=== PATIENT | male | born 1940 | race Caucasian/White ===

== ENCOUNTER 2020-01-20 22:38 | Inpatient (IN) | payer MEDICARE, OTHER ==
[~2020-01-20] VITALS: Ht 175.3 cm; Wt 78.9 kg
--- NOTE | 2020-01-20 22:45 | NUR ---
PATIENT WAS MSE BY DR BURTON IN ROOM 05A. PATIENT A & O X4.
[2020-01-20 23:11] LABS: BASOPHILS # (AUTO) 0.1 K/uL (0.0-8.0); BASOPHILS % (AUTO) 1.3 % (0.0-2.0); EOSINOPHILS # (AUTO) 0.3 K/uL (0.0-0.7); EOSINOPHILS % (AUTO) 4.1 % (0.0-7.0); HEMATOCRIT 43.5 % (36.7-47.1); LYMPHOCYTES # (AUTO) 1.7 K/uL (20.0-40.0); LYMPHOCYTES % (AUTO) 22.5 % (20.5-51.5); MEAN CORPUSCULAR HEMOGLOBIN 31.6 uug (23.8-33.4); MEAN CORPUSCULAR HGB CONC 34 g/dL (32.5-36.3); MEAN CORPUSCULAR VOLUME 91.9 fL (73.0-96.2); MONOCYTES # (AUTO) 0.9 K/uL (2.0-10.0); MONOCYTES % (AUTO) 12.1 % (0.0-11.0); NEUTROPHILS # (AUTO) 4.4 K/uL (1.8-8.9); PLATELET COUNT (AUTO) 257 K/uL (152-348); RED BLOOD CELL COUNT(AUTO) 4.73 MIL/uL (4.06-5.63); WHITE BLOOD COUNT (AUTO) 7.4 K/uL (3.6-10.2)
[2020-01-20] MEDS ORDERED: DILTIAZEM HCL IV 125 MG in IV DEXTROSE 5% 100 ML IV ONE (23:15)
[2020-01-20] MEDS ORDERED: ASPIRIN 81 MG TAB.CHEW PO ONE (23:15)
[2020-01-20] MEDS ORDERED: DILTIAZEM HCL 25 MG IV IV ONE (23:15)
[2020-01-20 23:16] LABS: CARBON DIOXIDE 28 mmol/L (21-32); CHLORIDE 106 mmol/L (98-107); CREATININE 1.8 mg/dL (0.6-1.3); GLUCOSE 164 mg/dL (74-106); POTASSIUM 4.2 mmol/L (3.5-5.1); UREA NITROGEN, BLOOD 25 mg/dL (7-18)
[2020-01-20] MEDS ORDERED: ASPIRIN 81 MG TAB.CHEW ONE (23:17)
[2020-01-20] MEDS ORDERED: DILTIAZEM HCL 50 MG IV ONE (23:17)
[2020-01-20] MEDS ORDERED: DILTIAZEM HCL 25 MG IV ONE (23:17)
[2020-01-20] MEDS ORDERED: sotalol PO (23:36)
[2020-01-20] MEDS ORDERED: METF-440 PO (23:36)
[2020-01-20] MEDS ORDERED: PRAV40TA3 PO (23:36)
[2020-01-20] MEDS ORDERED: APIX2.5T PO (23:36)
[2020-01-20] MEDS ORDERED: LOSA100T31 PO (23:36)
--- NOTE | 2020-01-21 00:47 | NUR ---
DR ORTIZ ON THE PHONE WITH MAVIS ALONSO NP ACCEPTED PATIENT TELE.
[2020-01-21] MEDS ORDERED: DOCUSATE SODIUM 100 MG CAPSULE PO PRN (01:00)
[2020-01-21] MEDS ORDERED: MAG HYDROX/AL HYDROX/SIMETH 30 ML LIQUID UDC PO PRN (01:00)
[2020-01-21] MEDS ORDERED: NITROGLYCERIN 0.4 MG/TAB BOTTLE SL PRN (01:00)
[2020-01-21] MEDS ORDERED: ONDANSETRON 4 MG/2 ML VIAL IV PRN (01:00)
[2020-01-21] MEDS ORDERED: ACETAMINOPHEN 325 MG TABLET PO PRN (01:00)
[2020-01-21] MEDS ORDERED: DILTIAZEM HCL CD 120 MG CAP.SR.24H PO ONE (01:15)
[2020-01-21 02:00] VITALS: BP 147/72
[2020-01-21 04:00] VITALS: BP 145/68
--- NOTE | 2020-01-21 06:00 | NUR ---
Admitted to room 306; placed on tele; atrial fib, CVR; denies any pain, urine sent to lab; needs attended; VSS; assisted to meet hygiene needs; continue to monitor.
[2020-01-21 07:10] LABS: BASOPHILS # (AUTO) 0.1 K/uL (0.0-8.0); BASOPHILS % (AUTO) 1.3 % (0.0-2.0); EOSINOPHILS # (AUTO) 0.3 K/uL (0.0-0.7); EOSINOPHILS % (AUTO) 5.9 % (0.0-7.0); HEMATOCRIT 40.2 % (36.7-47.1); HEMOGLOBIN 13.7 g/dL (12.5-16.3); LYMPHOCYTES # (AUTO) 1.7 K/uL (20.0-40.0); LYMPHOCYTES % (AUTO) 32.8 % (20.5-51.5); MEAN CORPUSCULAR HEMOGLOBIN 31.3 uug (23.8-33.4); MEAN CORPUSCULAR HGB CONC 34 g/dL (32.5-36.3); MONOCYTES # (AUTO) 0.8 K/uL (2.0-10.0); MONOCYTES % (AUTO) 14.4 % (0.0-11.0); NEUTROPHILS # (AUTO) 2.4 K/uL (1.8-8.9); NEUTROPHILS % (AUTO) 45.6 % (38.5-71.5); PLATELET COUNT (AUTO) 241 K/uL (152-348); RED BLOOD CELL COUNT(AUTO) 4.37 MIL/uL (4.06-5.63); WHITE BLOOD COUNT (AUTO) 5.2 K/uL (3.6-10.2)
[2020-01-21 07:20] LABS: ALANINE AMINOTRANSFERASE 20 U/L (16-63); ALKALINE PHOSPHATASE 53 U/L (50-136); ASPARTATE AMINOTRANSFERASE 20 U/L (15-37); BILIRUBIN,TOTAL 0.9 mg/dL (0.2-1.0); CARBON DIOXIDE 27 mmol/L (21-32); CHLORIDE 109 mmol/L (98-107); CHOLESTEROL 75 mg/dL (<200); CREATININE 1.4 mg/dL (0.6-1.3); GLUCOSE 116 mg/dL (74-106); HDL CHOLESTEROL 46 mg/dL (40-60); MAGNESIUM 1.7 mg/dL (1.8-2.4); PHOSPHOROUS 3.8 mg/dL (2.5-4.9); POTASSIUM 3.7 mmol/L (3.5-5.1); TOTAL PROTEIN, SERUM 6.7 g/dL (6.4-8.2); TRIGLYCERIDES 55 MG/DL (30-150); UREA NITROGEN, BLOOD 22 mg/dL (7-18)
[2020-01-21 07:26] LABS: THYROID STIMULATING HORMONE 2.045 mIU/mL (0.358-3.740)
[2020-01-21 07:29] LABS: *BILIRUBIN,URIN NEGATIVE (NEGATIVE); *BLOOD, URINE NEGATIVE (NEGATIVE); *CLARITY,URINE CLEAR (CLEAR); *COLOR,URINE YELLOW (YELLOW); *KETONES,URINE NEGATIVE (NEGATIVE); *UROBILINOGEN,URINE 0.2 E.U./dl (NORMAL); LEUKOCYTE ESTERASE ,URINE NEGATIVE (NEGATIVE); NITRITE, URINE NEGATIVE (NEGATIVE); PH,URINE 5.5 (5.0-8.0); UGLUCOSE NEGATIVE (NEGATIVE)
[2020-01-21] MEDS ORDERED: METFORMIN HCL 500 MG TABLET PO SCH (08:00)
[2020-01-21] MEDS: METFORMIN HCL 500 MG TABLET PO SCH ×2 (08:32→17:05)
[2020-01-21] MEDS: LOSARTAN POTASSIUM 50 MG TABLET PO SCH (08:32)
[2020-01-21] MEDS: APIXABAN 5 MG TABLET PO SCH ×2 (08:33→22:06)
[2020-01-21] MEDS ORDERED: ASPIRIN 325 MG TABLET PO SCH (09:00)
[2020-01-21] MEDS ORDERED: Medication Not On Formulary EA (Apixaban (Eliquis) 2.5 MG) PO SCH (09:00)
[2020-01-21] MEDS ORDERED: SOTALOL PO SCH (09:00)
[2020-01-21] MEDS: DILTIAZEM HCL CD 120 MG CAP.SR.24H PO SCH (11:23)
[2020-01-21 11:35] VITALS: BP 149/86
[2020-01-21] MEDS ORDERED: MAGNESIUM OXIDE 400 MG TABLET PO ONE (12:00)
[2020-01-21 16:00] VITALS: BP 139/64
[2020-01-21] MEDS ORDERED: SOTALOL 120 MG PO SCH (17:00)
--- NOTE | 2020-01-21 18:22 | NUR ---
Patient calm and comfortable throughout shift with no signs of distress. Patient with stable vital signs. Patient medication compliant. Report given to oncoming nurse
--- NOTE | 2020-01-21 19:00 | NUR ---
Patient in bed, awake alertx4. Patient denies any acute distress or pain. Patient denies any chest pain. Patient's IV is intact and patent. Patient's vitals are stable. Safety measures in place. Bed low and locked in position. Call light within reach. Will continue with the plan of care.
[2020-01-21 20:00] VITALS: BP 134/66
[2020-01-21] MEDS ORDERED: ATORVASTATIN 10 MG TABLET PO SCH (21:00)
[2020-01-21] MEDS ORDERED: SOTALOL HCL 80 MG TABLET PO SCH (21:00)
[2020-01-21] MEDS: ATORVASTATIN 10 MG TABLET PO SCH (21:31)
--- NOTE | 2020-01-21 23:24 | NUR ---
Tele reading is Afib with 4sec pause. HR in the low 40s. Patient is asymptomatic of any crisis. Cardiology gas combustion engineer, Dr. Chavez notified. Gave new orders and carried out. Will continue to monitor patient.
[2020-01-22] VITALS: BP 121/55
--- NOTE | 2020-01-22 00:31 | NUR ---
EKG done and Alexandria Freeman made aware of pts. condition.
[2020-01-22 04:00] VITALS: BP 124/56
--- NOTE | 2020-01-22 06:31 | NUR ---
Patient slept intermittently throughout the night. Patient is awake and denies any acute distress/SOB or pain. Afib with slow ventricular response, 62-65 on tele monitor. Patients vitals are stable. Prescribed medications given, patient was compliant. Comfort care and needs attended. Safety measures in place. Bed low and locked in position. Call light within reach. Will endorse to the oncoming nurse for the continuity of care
[2020-01-22 06:46] LABS: BASOPHILS # (AUTO) 0.1 K/uL (0.0-8.0); BASOPHILS % (AUTO) 1.3 % (0.0-2.0); EOSINOPHILS # (AUTO) 0.4 K/uL (0.0-0.7); EOSINOPHILS % (AUTO) 7.4 % (0.0-7.0); HEMATOCRIT 40.1 % (36.7-47.1); HEMOGLOBIN 13.4 g/dL (12.5-16.3); LYMPHOCYTES # (AUTO) 1.8 K/uL (20.0-40.0); LYMPHOCYTES % (AUTO) 34.8 % (20.5-51.5); MEAN CORPUSCULAR HGB CONC 34 g/dL (32.5-36.3); MEAN CORPUSCULAR VOLUME 92.4 fL (73.0-96.2); MONOCYTES # (AUTO) 0.6 K/uL (2.0-10.0); MONOCYTES % (AUTO) 11.4 % (0.0-11.0); NEUTROPHILS # (AUTO) 2.3 K/uL (1.8-8.9); NEUTROPHILS % (AUTO) 45.1 % (38.5-71.5); PLATELET COUNT (AUTO) 233 K/uL (152-348); RED BLOOD CELL COUNT(AUTO) 4.34 MIL/uL (4.06-5.63); WHITE BLOOD COUNT (AUTO) 5.1 K/uL (3.6-10.2)
[2020-01-22 07:06] LABS: CARBON DIOXIDE 30 mmol/L (21-32); CHLORIDE 105 mmol/L (98-107); CREATINE KINASE, TOTAL 25 U/L (39-308); GLUCOSE 118 mg/dL (74-106); MAGNESIUM 1.6 mg/dL (1.8-2.4); PHOSPHOROUS 3.6 mg/dL (2.5-4.9); POTASSIUM 3.8 mmol/L (3.5-5.1); UREA NITROGEN, BLOOD 18 mg/dL (7-18)
--- NOTE | 2020-01-22 08:00 | NUR ---
Received patient sitting up at the side of the bed. Awake alert and oriented x3. No signs of pain or distress. Remains afib on cardiac rehab nurse. Will continue to monitor.
[2020-01-22] MEDS: LOSARTAN POTASSIUM 50 MG TABLET PO SCH (08:20)
[2020-01-22] MEDS: ASPIRIN 81 MG TAB.CHEW PO SCH (08:21)
[2020-01-22] MEDS: DILTIAZEM HCL CD 120 MG CAP.SR.24H PO SCH (08:21)
[2020-01-22] MEDS: APIXABAN 5 MG TABLET PO SCH ×2 (08:48→20:40)
--- NOTE | 2020-01-22 09:45 | NUR ---
Dr. Donohue noted low magnesium of 1.6 with order to replace with 2mg IV.
[2020-01-22] MEDS: MAGNESIUM SULFATE/D5W 100 ML IV SCH ×2 (10:31→12:08)
[2020-01-22 11:42] VITALS: BP 131/64
[2020-01-22 16:26] VITALS: BP 145/79
[2020-01-22 20:00] VITALS: BP 136/68
[2020-01-22] MEDS: ATORVASTATIN 10 MG TABLET PO SCH (20:35)
--- NOTE | 2020-01-22 21:37 | NUR ---
Patient is awake, sitting on the bed. Patient denies any acute distress or pain. Afib controlled, 76 on tele monitor. Vitals are stable. Safety measures in place. Will continue with the plan of care.
[2020-01-23] VITALS (7 sets, daily range): BP systolic 115–170; BP diastolic 59–81
--- NOTE | 2020-01-23 06:28 | NUR ---
Patient slept throughout the night. Patient is awake. Patient denies any acute distress or pain. VS stable. Controlled Afib, 65 on tele monitor. Due medications given, patient tolerated. Comfort care and needs attended. Safety measures in place. Bed low and locked in position. Call light within reach. Will endorse to the oncoming nurse for the continuity of care.
[2020-01-23] MEDS: LOSARTAN POTASSIUM 50 MG TABLET PO SCH (08:13)
[2020-01-23] MEDS: ASPIRIN 81 MG TAB.CHEW PO SCH (08:13)
[2020-01-23] MEDS: APIXABAN 5 MG TABLET PO SCH ×2 (08:14→20:50)
[2020-01-23] MEDS ORDERED: PRAV10TA40 PO (12:48)
[2020-01-23] MEDS ORDERED: MAGN400C PO (12:48)
[2020-01-23] MEDS ORDERED: METF-440 PO (12:48)
[2020-01-23] MEDS: SOTALOL HCL 80 MG TABLET PO SCH ×2 (14:30→20:47)
--- NOTE | 2020-01-23 19:30 | NUR ---
PATIENT ALERT ORIENTED, NO SOB NO CHEST PAIN, TELE MONITOR AFIB CONTROL. PATIENT HAS LITTLE CHEST PRESSURE DESCRIBE BY PATIENT, DR HUMPHREY AWARE AND HAD ORDER ADDITIONAL MEDS. V/S STABLE AT THIS TIME, CONT TO MONITOR.
[2020-01-23] MEDS: ATORVASTATIN 10 MG TABLET PO SCH (20:48)
[2020-01-24 00:54] VITALS: BP 124/53
[2020-01-24 04:29] VITALS: BP 133/52
--- NOTE | 2020-01-24 06:17 | NUR ---
PATIENT AWAKE ALERT ORIENTED NO FURTHER COMPLAIN OF CHEST PRESSURE, NO SOB. PATIENT ON TELE MONITOR A FIB CONTROL. CALL LIGHT WITHIN REACH.
[2020-01-24 06:41] LABS: BASOPHILS # (AUTO) 0.1 K/uL (0.0-8.0); BASOPHILS % (AUTO) 1.1 % (0.0-2.0); EOSINOPHILS # (AUTO) 0.4 K/uL (0.0-0.7); EOSINOPHILS % (AUTO) 7.1 % (0.0-7.0); HEMATOCRIT 42.1 % (36.7-47.1); HEMOGLOBIN 14.4 g/dL (12.5-16.3); MEAN CORPUSCULAR HEMOGLOBIN 31.3 uug (23.8-33.4); MEAN CORPUSCULAR HGB CONC 34 g/dL (32.5-36.3); MEAN CORPUSCULAR VOLUME 91.2 fL (73.0-96.2); MONOCYTES # (AUTO) 0.7 K/uL (2.0-10.0); MONOCYTES % (AUTO) 12.4 % (0.0-11.0); NEUTROPHILS # (AUTO) 2.3 K/uL (1.8-8.9); NEUTROPHILS % (AUTO) 42.4 % (38.5-71.5); PLATELET COUNT (AUTO) 251 K/uL (152-348); RED BLOOD CELL COUNT(AUTO) 4.61 MIL/uL (4.06-5.63); WHITE BLOOD COUNT (AUTO) 5.5 K/uL (3.6-10.2)
[2020-01-24 07:09] LABS: CREATININE 1.2 mg/dL (0.6-1.3); MAGNESIUM 2.7 mg/dL (1.8-2.4); PHOSPHOROUS 3.4 mg/dL (2.5-4.9); POTASSIUM 3.8 mmol/L (3.5-5.1); TOTAL PROTEIN, SERUM 7.1 g/dL (6.4-8.2)
[2020-01-24] MEDS: ASPIRIN 81 MG TAB.CHEW PO SCH (08:03)
[2020-01-24] MEDS: LOSARTAN POTASSIUM 50 MG TABLET PO SCH (08:03)
[2020-01-24] MEDS: SOTALOL HCL 80 MG TABLET PO SCH (08:03)
[2020-01-24] MEDS: APIXABAN 5 MG TABLET PO SCH (08:05)
[2020-01-24] MEDS ORDERED: DIPHENOXYLATE HCL/ATROP SULF TABLET PO PRN (10:00)
[2020-01-24] MEDS ORDERED: IV NS 1000 ML 1,000 ML IV PRN (10:00)
[2020-01-24 11:30] VITALS: BP 115/69
--- NOTE | 2020-01-24 17:46 | NUR ---
dc orders received noted and carried out.dc instruction and education given to the pt.dc heplock per md orders.pt left the facility via private car in stable condition
[2020-01-26 15:09] LABS: ALBUMIN 3.1 g/dL (2.9-4.4); ALPHA-1-GLOBULIN 0.2 g/dL (0.0-0.4); GAMMA GLOBULIN 0.8 g/dL (0.4-1.8); GLOBULIN, TOTAL 3.1 g/dL (2.2-3.9); M-SPIKE Not Observed g/dL (Not Observed)
== END 2020-01-24 17:35 | disposition home or self-care (01) | DRG 308 ==
LOC: ER 22:40 → TELE3 01-21 01:42
PROVIDERS: ADMIT Internal Medicine; ATTEND Internal Medicine
DX: I48.0 Paroxysmal atrial fibrillation (principal); N17.0 Acute kidney failure with tubular necrosis; I25.10 Atherosclerotic heart disease of native coronary artery without angina pectoris; Z95.5 Presence of coronary angioplasty implant and graft; Z79.01 Long term (current) use of anticoagulants; E11.22 Type 2 diabetes mellitus with diabetic chronic kidney disease; E83.42 Hypomagnesemia; E78.5 Hyperlipidemia, unspecified; M19.90 Unspecified osteoarthritis, unspecified site; N18.9 Chronic kidney disease, unspecified; I12.9 Hypertensive chronic kidney disease with stage 1 through stage 4 chronic kidney disease, or unspecified chronic kidney disease; M54.30 Sciatica, unspecified side; Z95.1 Presence of aortocoronary bypass graft; Z79.84 Long term (current) use of oral hypoglycemic drugs; R19.7 Diarrhea, unspecified
CPT/HCPCS: 36415; 70030-TC; 71045; 76770; 83735; 83970; 84100; 84155; 84165; 84443; 85025; 85610; 93005; 93307; A4663; G0378; J3475; J3490; J7030; J7050; J7060

== ENCOUNTER 2020-07-21 08:56 | Inpatient (IN) | payer MEDICARE, OTHER ==
[~2020-07-21] VITALS: Ht 165.1 cm; Wt 76.8 kg
[~2020-07-21 08:56] MED LIST: APIX2.5T PO; LOSA100T31 PO; MAGN400C PO; METF-440 PO; PRAV10TA40 PO; sotalol PO
--- NOTE | 2020-07-21 09:10 | NUR ---
80 years old male presents to er by ambulance with cp, constant dry cough, no sob, no acute distress placed on school bus monitor, continuous pulse ox will continue to monitor.
[2020-07-21] MEDS ORDERED: IV NORMAL SALINE 500 ML BAG IV ONE (09:30)
[2020-07-21] MEDS ORDERED: ASPIRIN 81 MG TAB.CHEW PO ONE (09:30)
[2020-07-21] MEDS ORDERED: EZET10TA15 PO (09:31)
[2020-07-21] MEDS ORDERED: METF-440 PO (09:31)
[2020-07-21] MEDS ORDERED: LOSA100T31 PO (09:31)
[2020-07-21] MEDS ORDERED: ALLO100T PO (09:31)
[2020-07-21] MEDS ORDERED: FOLI0.8C2 PO (09:31)
[2020-07-21] MEDS ORDERED: HYDR12.55 PO (09:31)
[2020-07-21] MEDS ORDERED: SOTA80TA PO (09:31)
[2020-07-21] MEDS ORDERED: CARB-93 PO (09:31)
[2020-07-21] MEDS ORDERED: CLOP75TA15 PO (09:31)
[2020-07-21] MEDS ORDERED: CELE200C PO (09:31)
--- NOTE | 2020-07-21 09:32 | NUR ---
Review medications bottles w/ Pt.
[2020-07-21 09:44] LABS: BASOPHILS # (AUTO) 0.1 K/uL (0.0-8.0); BASOPHILS % (AUTO) 0.8 % (0.0-2.0); EOSINOPHILS # (AUTO) 0.2 K/uL (0.0-0.7); HEMATOCRIT 34.8 % (36.7-47.1); HEMOGLOBIN 12.3 g/dL (12.5-16.3); LYMPHOCYTES % (AUTO) 13.6 % (20.5-51.5); MEAN CORPUSCULAR HEMOGLOBIN 32.1 uug (23.8-33.4); MEAN CORPUSCULAR HGB CONC 35 g/dL (32.5-36.3); MEAN CORPUSCULAR VOLUME 90.9 fL (73.0-96.2); MONOCYTES % (AUTO) 13.6 % (0.0-11.0); NEUTROPHILS # (AUTO) 4.8 K/uL (1.8-8.9); PLATELET COUNT (AUTO) 393 K/uL (152-348); RED BLOOD CELL COUNT(AUTO) 3.83 MIL/uL (4.06-5.63)
--- NOTE | 2020-07-21 09:52 | NUR ---
patient receives aspirin in the field 162 mg ER MD notified, and stated to hold aspirin verbally.
[2020-07-21 09:53] LABS: CREATININE 0.8 mg/dL (0.6-1.3); POTASSIUM 3.8 mmol/L (3.5-5.1)
[2020-07-21 10:06] LABS: BILIRUBIN,DIRECT 0.3 mg/dL (0.0-0.2); BILIRUBIN,TOTAL 1.1 mg/dL (0.2-1.0); TOTAL PROTEIN, SERUM 7.1 g/dL (6.4-8.2)
[2020-07-21] MEDS ORDERED: FUROSEMIDE 40 MG/4 ML VIAL IV ONE (10:30)
[2020-07-21] MEDS ORDERED: FUROSEMIDE 40 MG/4 ML VIAL ONE (10:35)
--- NOTE | 2020-07-21 11:21 | NUR ---
patient reassess condition stable no cp, no sob will continue to monitor awaiting for admit tele bed Dx chest pain/CHF accepting MD Morelos.
[2020-07-21] MEDS ORDERED: HYDROCODONE/APAP 5-325MG TABLET PO PRN (11:30)
[2020-07-21] MEDS ORDERED: MAGNESIUM HYDROXIDE 30 ML LIQUID UDC PO PRN (11:30)
[2020-07-21] MEDS ORDERED: ONDANSETRON 4 MG/2 ML VIAL IV PRN (11:30)
[2020-07-21] MEDS ORDERED: NITROGLYCERIN OINT 1 GM PACKET TP ONE ×2 (11:30→11:31)
[2020-07-21] MEDS ORDERED: Z GUARD REMEDY PASTE 57 GM TUBE TOP PRN (11:30)
[2020-07-21] MEDS ORDERED: ACETAMINOPHEN 325 MG TABLET PO PRN (11:30)
[2020-07-21] MEDS: CARBIDOPA/LEVODOPA 25-100MG TABLET PO SCH ×2 (15:31→17:07)
[2020-07-21 16:00] VITALS: BP 140/74
--- NOTE | 2020-07-21 16:00 | NUR ---
Pt received from ER, no acute distress, no SOB, denies pain at this time. Pt oriented to unit floor and room 301 A. Pt AAox4, able to make needs known, able to swallow water and medication as ordered without difficulty. MRSA swab collected and sent to lab. Rx medications from home accounted for and delivered to pharmacy. VSS 140/74, 80, 97.8, 96% on RA. Call light placed within reach along with belongings. Will continue to monitor and admit Pt into system. All comfort and safety needs met at this time.
[2020-07-21] MEDS: FOLIC ACID 1 MG TABLET PO SCH (17:07)
[2020-07-21] MEDS: CELECOXIB 200 MG CAPSULE PO SCH (17:11)
[2020-07-21] MEDS: SOTALOL HCL 80 MG TABLET PO SCH (17:17)
--- NOTE | 2020-07-21 19:30 | NUR ---
RECEIVED PT AWAKE, ALERT AND ORIENTEDX3. PT IN NO ACUTE DISTRESS. IV INTACT. PT ON ROOM AIR. PT OBSERVED HAVING NONPRODUCTIVE COUGH. SAFETY AND COMFORT PROVIDED. WILL CONTINUE TO MONITOR.
--- NOTE | 2020-07-21 20:14 | NUR ---
PT REQUESTED TO HAVE COUGH MEDICATION. OBSERVED PT HAS NONPRODUCTIVE COUGH. DR. GALLEGOS ORDERED ROBITUSSIN DM [id number] .
[2020-07-21 20:16] VITALS: BP 104/48
[2020-07-21] MEDS: GUAIFENESIN/DEXTROMETHORPHAN 5 ML UDC PO PRN (21:18)
[2020-07-21] MEDS: APIXABAN 2.5 MG TABLET PO SCH (21:21)
[2020-07-22 00:30] VITALS: BP 116/61
[2020-07-22 04:00] VITALS: BP 123/70
[2020-07-22] MEDS: GUAIFENESIN/DEXTROMETHORPHAN 5 ML UDC PO PRN ×2 (05:07→21:01)
[2020-07-22 06:44] LABS: BASOPHILS # (AUTO) 0.1 K/uL (0.0-8.0); EOSINOPHILS # (AUTO) 0.1 K/uL (0.0-0.7); HEMATOCRIT 33.7 % (36.7-47.1); HEMOGLOBIN 12.1 g/dL (12.5-16.3); LYMPHOCYTES # (AUTO) 1.1 K/uL (20.0-40.0); LYMPHOCYTES % (AUTO) 15.1 % (20.5-51.5); MEAN CORPUSCULAR HEMOGLOBIN 32.3 uug (23.8-33.4); MEAN CORPUSCULAR HGB CONC 36 g/dL (32.5-36.3); MEAN CORPUSCULAR VOLUME 90.1 fL (73.0-96.2); MONOCYTES # (AUTO) 0.9 K/uL (2.0-10.0); NEUTROPHILS # (AUTO) 4.8 K/uL (1.8-8.9); NEUTROPHILS % (AUTO) 68.9 % (38.5-71.5); PLATELET COUNT (AUTO) 400 K/uL (152-348); RED BLOOD CELL COUNT(AUTO) 3.75 MIL/uL (4.06-5.63)
--- NOTE | 2020-07-22 06:48 | NUR ---
PT SLEPT INTERMITTENTLY. PT IN NO ACUTE DISTRESS. PT IN SINUS RHYTHM. PT GIVEN TWO TIMES COUGH MEDICATIONPRN PER PT REQUEST. PRESCRIBED MEDICATION GIVEN AND PT TOLERATED IT WELL. SAFETY AND COMFORT PROVIDED. WILL ENDORSE TO INCOMING NURSE FOR CONTINUITY OF CARE.
[2020-07-22 07:57] LABS: CREATININE 0.9 mg/dL (0.6-1.3); PHOSPHOROUS 3.4 mg/dL (2.5-4.9); POTASSIUM 3.2 mmol/L (3.5-5.1); TOTAL PROTEIN, SERUM 6.6 g/dL (6.4-8.2)
[2020-07-22 07:59] LABS: THYROID STIMULATING HORMONE 0.795 mIU/mL (0.358-3.740)
[2020-07-22 08:32] LABS: URIC ACID 4.4 mg/dL (3.5-7.2)
[2020-07-22] MEDS ORDERED: POTASSIUM CHLORIDE 20 MEQ POWDER PACKET PO ONE (08:45)
[2020-07-22] MEDS: CELECOXIB 200 MG CAPSULE PO SCH ×2 (08:54→16:51)
[2020-07-22] MEDS: CLOPIDOGREL 75 MG TABLET PO SCH (08:55)
[2020-07-22] MEDS: CARBIDOPA/LEVODOPA 25-100MG TABLET PO SCH ×3 (08:55→16:55)
[2020-07-22] MEDS: FOLIC ACID 1 MG TABLET PO SCH ×2 (08:55→16:55)
[2020-07-22] MEDS: ALLOPURINOL 100 MG TABLET PO SCH (08:55)
[2020-07-22] MEDS: EZETIMIBE 10 MG TABLET PO SCH (08:56)
[2020-07-22] MEDS: APIXABAN 2.5 MG TABLET PO SCH ×2 (08:57→20:54)
[2020-07-22] MEDS ORDERED: POTASSIUM CHLORIDE 50 ML IV SCH (09:00)
[2020-07-22] MEDS: SOTALOL HCL 80 MG TABLET PO SCH ×2 (09:12→16:54)
[2020-07-22] MEDS: FUROSEMIDE 40 MG/4 ML VIAL IV SCH (09:13)
[2020-07-22 11:09] LABS: MAGNESIUM 1.7 mg/dL (1.8-2.4)
[2020-07-22 11:57] VITALS: BP 139/60
--- NOTE | 2020-07-22 12:32 | NUR ---
IV got infiltrated, removed. Will reinsert. Potassium not given yet
[2020-07-22] MEDS: POTASSIUM CHLORIDE 10 MEQ, LIDOCAINE-MPF 1% 1 ML in IV DEXTROSE 5% 100 ML IV SCH ×3 (13:43→16:51)
[2020-07-22] MEDS: BACLOFEN 10 MG TABLET PO SCH ×2 (15:16→20:52)
[2020-07-22 16:00] VITALS: BP 136/85
--- NOTE | 2020-07-22 19:10 | NUR ---
Pt in bed, awake. Denies any acute distress or pain at this time. V/S stable on room air. Controlled Afib 85 ob tele monitor. Safety measures in place. Call light within reach. Will continue with the plan of care.
[2020-07-22 20:00] VITALS: BP 154/84
[2020-07-23] VITALS: BP 148/78
[2020-07-23 04:00] VITALS: BP 146/72
--- NOTE | 2020-07-23 06:12 | NUR ---
Pt slept intermittently through the night. V/S stable throughout the shift. Pt on room air. Denies any acute distress or pain at this time. Comfort care and needs attended. Isolation and fall precaution maintained. Safety measures in place. Call light within reach. Will endorse to oncoming nurse accordingly.
[2020-07-23 08:00] VITALS: BP 151/69
[2020-07-23] MEDS: CLOPIDOGREL 75 MG TABLET PO SCH (08:49)
[2020-07-23] MEDS: CARBIDOPA/LEVODOPA 25-100MG TABLET PO SCH ×3 (08:49→17:09)
[2020-07-23] MEDS: EZETIMIBE 10 MG TABLET PO SCH (08:49)
[2020-07-23] MEDS: ALLOPURINOL 100 MG TABLET PO SCH (08:49)
[2020-07-23] MEDS: FOLIC ACID 1 MG TABLET PO SCH ×2 (08:50→17:09)
[2020-07-23] MEDS: CELECOXIB 200 MG CAPSULE PO SCH ×2 (08:50→17:09)
[2020-07-23] MEDS: BACLOFEN 10 MG TABLET PO SCH ×2 (08:50→23:10)
[2020-07-23] MEDS: FUROSEMIDE 40 MG/4 ML VIAL IV SCH (08:52)
[2020-07-23] MEDS: SOTALOL HCL 80 MG TABLET PO SCH ×2 (08:52→17:14)
[2020-07-23] MEDS: APIXABAN 2.5 MG TABLET PO SCH ×2 (08:54→23:14)
[2020-07-23 11:02] VITALS: BP 109/48
[2020-07-23] MEDS: GUAIFENESIN/DEXTROMETHORPHAN 5 ML UDC PO PRN (11:50)
[2020-07-23 15:02] VITALS: BP 125/69
[2020-07-23 20:00] VITALS: BP 114/57
[2020-07-23 22:14] LABS: POTASSIUM 3.4 mmol/L (3.5-5.1)
[2020-07-23 22:18] LABS: BASOPHILS # (AUTO) 0.1 K/uL (0.0-8.0); BASOPHILS % (AUTO) 0.6 % (0.0-2.0); EOSINOPHILS # (AUTO) 0.1 K/uL (0.0-0.7); EOSINOPHILS % (AUTO) 1.5 % (0.0-7.0); LYMPHOCYTES # (AUTO) 1.2 K/uL (20.0-40.0); LYMPHOCYTES % (AUTO) 12.5 % (20.5-51.5); MEAN CORPUSCULAR HEMOGLOBIN 31.8 uug (23.8-33.4); MEAN CORPUSCULAR HGB CONC 35 g/dL (32.5-36.3); MEAN CORPUSCULAR VOLUME 90.1 fL (73.0-96.2); MONOCYTES # (AUTO) 1.2 K/uL (2.0-10.0); MONOCYTES % (AUTO) 12.6 % (0.0-11.0); NEUTROPHILS # (AUTO) 7.2 K/uL (1.8-8.9); NEUTROPHILS % (AUTO) 72.8 % (38.5-71.5); PLATELET COUNT (AUTO) 444 K/uL (152-348); WHITE BLOOD COUNT (AUTO) 9.8 K/uL (3.6-10.2)
[2020-07-23] MEDS ORDERED: POTASSIUM CHLORIDE 20 MEQ TAB.PRT.SR PO ONE (23:30)
[2020-07-24] VITALS: BP 142/75
--- NOTE | 2020-07-24 | NUR ---
LAb not down this AM; followed up with lab and reordered; K 3.4; referred to Tamy MAYONNAISE MIXER and 40 meq KCL ordered and given to pt.
[2020-07-24 04:00] VITALS: BP 129/68
--- NOTE | 2020-07-24 08:00 | NUR ---
RECEIVED PATIENT IN BED AWAKE ALERT AND AWARE NO S/S OF PAIN OR DISCOMFORTS AT THIS TIME REMAIN ON COVID POSITIVE AND PRECAUTION ON RRO AIR WITH NO SHORTNESS OF BREATH AT THIS TIME.TELE IS SR CALL LIGHTS AND PERSONAL BELONGINGS ARE WITHIN EAY REACH MADE COMFORTABLE WILL CONTINUE TO OBSERVE.
[2020-07-24] MEDS: BACLOFEN 10 MG TABLET PO SCH ×2 (09:43→20:41)
[2020-07-24] MEDS: ALLOPURINOL 100 MG TABLET PO SCH (09:43)
[2020-07-24] MEDS: CARBIDOPA/LEVODOPA 25-100MG TABLET PO SCH ×3 (09:43→16:53)
[2020-07-24] MEDS: CLOPIDOGREL 75 MG TABLET PO SCH (09:43)
[2020-07-24] MEDS: FUROSEMIDE 40 MG/4 ML VIAL IV SCH (09:43)
[2020-07-24] MEDS: FOLIC ACID 1 MG TABLET PO SCH ×2 (09:43→16:53)
[2020-07-24] MEDS: EZETIMIBE 10 MG TABLET PO SCH (09:45)
[2020-07-24] MEDS: APIXABAN 2.5 MG TABLET PO SCH ×2 (09:45→20:43)
[2020-07-24] MEDS: SOTALOL HCL 80 MG TABLET PO SCH ×2 (09:46→17:04)
[2020-07-24] MEDS: CELECOXIB 200 MG CAPSULE PO SCH ×2 (09:50→17:02)
[2020-07-24 11:40] LABS: CREATININE 0.9 mg/dL (0.6-1.3)
[2020-07-24 12:00] VITALS: BP 122/64
[2020-07-24 12:14] LABS: POTASSIUM 3.6 mmol/L (3.5-5.1)
[2020-07-24] MEDS ORDERED: FUROSEMIDE 40 MG/4 ML VIAL IV ONE (13:00)
[2020-07-24 16:00] VITALS: BP 150/63
[2020-07-24] MEDS: GUAIFENESIN/DEXTROMETHORPHAN 5 ML UDC PO PRN (17:06)
--- NOTE | 2020-07-24 17:30 | NUR ---
NOTED WITH EPISODES OF COUGH MEDICATED WITH ROBITUSSIN ORDERED REMAIN ON FLUID RESTRICTION REEDUCATED TO MINIMIZE DRINKING FLUIDS TO SET LIMIT AT 1200 IN 24 HOURS AND HE EXPRESSED UNDERSTANDING.
[2020-07-24 20:00] VITALS: BP 131/76
--- NOTE | 2020-07-24 22:53 | NUR ---
Received pt resting in bed. AAO X4. No acute distress noted. Denies pain/ discomfort. Due meds given as ordered. Pt covid positive, on precaution. On fluid restriction 1,200 mL/ day. No cough noted at this time. Safety measures maintained. Call light and personal items within reach. Will continue to monitor.
[2020-07-25 04:00] VITALS: BP 155/67
[2020-07-25] MEDS: GUAIFENESIN/DEXTROMETHORPHAN 5 ML UDC PO PRN (06:26)
--- NOTE | 2020-07-25 08:30 | NUR ---
RECEIVED PATIENT AWAKE ALERT ORIENTED AND COOPERATIVE EDUCATION RE FLUID RESTRICTION IS ONGOING AND HE HAS EXPRESSED UNDERSTANDING DENIES PAIN OR DISCOMFORTS PATIENT REMAIN ON COVID ISOLATION AND PRECAUTION OCCASSIONAL COUGH EPISODES NO SOB NOT IN DISTRESS CALL LIGHTS AND HIS PERSONAL BELONGINGS ARE WITHIN EASY REACH MADE COMFORTABLE WILL CONTINUE TO OBSERVE.
[2020-07-25] MEDS: EZETIMIBE 10 MG TABLET PO SCH (08:49)
[2020-07-25] MEDS: CARBIDOPA/LEVODOPA 25-100MG TABLET PO SCH ×3 (08:49→16:34)
[2020-07-25] MEDS: FOLIC ACID 1 MG TABLET PO SCH ×2 (08:49→16:33)
[2020-07-25] MEDS: FUROSEMIDE 40 MG/4 ML VIAL IV SCH (08:49)
[2020-07-25] MEDS: CLOPIDOGREL 75 MG TABLET PO SCH (08:49)
[2020-07-25] MEDS: ALLOPURINOL 100 MG TABLET PO SCH (08:49)
[2020-07-25] MEDS: BACLOFEN 10 MG TABLET PO SCH ×2 (08:49→20:47)
[2020-07-25] MEDS: CELECOXIB 200 MG CAPSULE PO SCH ×2 (08:50→16:36)
[2020-07-25] MEDS: SOTALOL HCL 80 MG TABLET PO SCH ×2 (08:51→16:37)
[2020-07-25] MEDS: APIXABAN 2.5 MG TABLET PO SCH ×2 (09:59→20:50)
[2020-07-25 10:23] LABS: POTASSIUM 3.7 mmol/L (3.5-5.1)
[2020-07-25 11:55] VITALS: BP 116/55
[2020-07-25] MEDS: FUROSEMIDE 40 MG TABLET PO SCH ×2 (14:45→16:34)
--- NOTE | 2020-07-25 15:05 | NUR ---
PATIENT SEEN BY DR WHYTE WITH NEW ORDERS AND NOTED PATIENT ALREADY RECEIVED LASIX 40 THIS AM AND HAS ANOTHER ONE SCHEDULED FOR 1700 ORDER IS FOR BID WILL GIVE HIM A DOSE AT 1700 WHICH WILL EQUAL THE BID ORDERED.
[2020-07-25 15:12] VITALS: BP 117/67
--- NOTE | 2020-07-25 15:21 | NUR ---
PATIENT SEEN AND EXAMINED BY BRIAN ELECTRIC FAN ASSEMBLER WITH ORDER FOR DISCHARGE PLANNING AND NOTED
[2020-07-25 20:09] VITALS: BP 125/62
--- NOTE | 2020-07-25 20:18 | NUR ---
REceived patient in bed able to make needs known.Denies chest pain.On rA with O2 sat at 95%.No s/s of distress noted. IV on left FA in place .No s/s of infiltration.Compliant with medication. Reinforced teaching regarding fluid restriction.Verbalized understanding.Continue on isolation for covid. SAfety measures in place. Call light with in reach.Will continue to monitor.
[2020-07-26 00:09] VITALS: BP 138/81
[2020-07-26] MEDS: GUAIFENESIN/DEXTROMETHORPHAN 5 ML UDC PO PRN ×4 (00:27→22:48)
[2020-07-26 04:09] VITALS: BP 141/57
[2020-07-26 07:53] LABS: POTASSIUM 3.3 mmol/L (3.5-5.1)
[2020-07-26] MEDS: CLOPIDOGREL 75 MG TABLET PO SCH (08:48)
[2020-07-26] MEDS: ALLOPURINOL 100 MG TABLET PO SCH (08:49)
[2020-07-26] MEDS: BACLOFEN 10 MG TABLET PO SCH ×2 (08:49→20:33)
[2020-07-26] MEDS: EZETIMIBE 10 MG TABLET PO SCH (08:49)
[2020-07-26] MEDS: FOLIC ACID 1 MG TABLET PO SCH ×2 (08:49→16:26)
[2020-07-26] MEDS: CARBIDOPA/LEVODOPA 25-100MG TABLET PO SCH ×3 (08:49→16:26)
[2020-07-26] MEDS: FUROSEMIDE 40 MG TABLET PO SCH (08:49)
[2020-07-26] MEDS: CELECOXIB 200 MG CAPSULE PO SCH ×2 (08:50→17:35)
[2020-07-26] MEDS: SOTALOL HCL 80 MG TABLET PO SCH ×2 (08:51→17:35)
[2020-07-26] MEDS ORDERED: POTASSIUM CHLORIDE 20 MEQ TAB.PRT.SR PO ONE (09:30)
[2020-07-26] MEDS: APIXABAN 2.5 MG TABLET PO SCH ×2 (09:41→20:36)
--- NOTE | 2020-07-26 09:50 | NUR ---
POTASSIUM LEVEL IS 3.3 WITH REPLACEMENT ORDERED PATIENT C/O WANTS COUGH MEDICATION ADMINISTERED ORDERED
--- NOTE | 2020-07-26 11:05 | NUR ---
PATIENT SEEN AND EXAMINED BY DR GEE WITH NEW ORDERS AND NOTED.
[2020-07-26 12:00] VITALS: BP 124/54
[2020-07-26 16:00] VITALS: BP 129/90
--- NOTE | 2020-07-26 18:00 | NUR ---
PATIENT SEEN AND EXAMINED BY BRIAN GALLEGOS NP DISCHARGE PLANNING IN AM PENDING BED AVAILABILITY ARRANGED BY THE FILM COLOR TESTER PATIENT AND FAMILY AWARE.
--- NOTE | 2020-07-26 20:00 | NUR ---
PATIENT IS IN BED AWAKE ALERT AND ORIENTED OM ROOM AIR WITH NO SHORTNESS OF BREATH AT THIS TIME REMAIN ON COVID ISOLATION AND PRECAUTION DENIES PAIN OR DISCOMFORTS AT THIS TIME CALL LIGHTS AND PERSONAL BELONGINGS ARE WITHIN EASY REACH WILL CONTINUE TO OBSERVE.
[2020-07-26 20:09] VITALS: BP 129/63
--- NOTE | 2020-07-26 22:48 | NUR ---
NOTED PATIENT COUGHING REQUESTED FOR COUGH MEDICATION MEDICATED ORDERED WILL CONTINUE TO OBSERVE.
--- NOTE | 2020-07-27 02:04 | NUR ---
PATIENT ASSISTED UP ON THE COMMODE WITH MOD ASSIST HAD A BOWEL MOVEMENT AND BACK INTO BED FIXED AND MADE COMFORTABLE.
[2020-07-27 04:09] VITALS: BP 122/79
[2020-07-27] MEDS: GUAIFENESIN/DEXTROMETHORPHAN 5 ML UDC PO PRN ×4 (05:16→23:34)
--- NOTE | 2020-07-27 06:56 | NUR ---
MEDICATED FOR COUGH ORDERED AND HELPFUL RESTING IN BED NO SOB AFEBRILE WILL CONTINUE TO OBSERVE.
[2020-07-27 06:57] LABS: CREATININE 1.1 mg/dL (0.6-1.3); POTASSIUM 3.7 mmol/L (3.5-5.1)
[2020-07-27] MEDS ORDERED: FUROSEMIDE 40 MG TABLET PO SCH (09:00)
[2020-07-27] MEDS ORDERED: POTASSIUM CHLORIDE 10 MEQ TAB.PRT.SR PO SCH (09:00)
[2020-07-27] MEDS: FOLIC ACID 1 MG TABLET PO SCH ×2 (09:54→17:01)
[2020-07-27] MEDS: BACLOFEN 10 MG TABLET PO SCH ×2 (09:54→20:52)
[2020-07-27] MEDS: CARBIDOPA/LEVODOPA 25-100MG TABLET PO SCH ×3 (09:54→17:02)
[2020-07-27] MEDS: ALLOPURINOL 100 MG TABLET PO SCH (09:54)
[2020-07-27] MEDS: EZETIMIBE 10 MG TABLET PO SCH (09:55)
[2020-07-27] MEDS: APIXABAN 2.5 MG TABLET PO SCH ×2 (10:10→20:52)
[2020-07-27] MEDS: SOTALOL HCL 80 MG TABLET PO SCH ×2 (10:51→17:00)
[2020-07-27] MEDS: CELECOXIB 200 MG CAPSULE PO SCH ×2 (11:00→17:01)
[2020-07-27] MEDS: CLOPIDOGREL 75 MG TABLET PO SCH (11:00)
[2020-07-27 12:21] VITALS: BP 136/72
[2020-07-27] MEDS ORDERED: FURO40TA5 PO (13:52)
[2020-07-27] MEDS ORDERED: BACL10TA PO (13:52)
[2020-07-27] MEDS ORDERED: POTA10CA43 PO (13:52)
[2020-07-27] MEDS ORDERED: APIX2.5T PO (13:52)
[2020-07-27 16:00] VITALS: BP 134/67
[2020-07-27 20:09] VITALS: BP 119/50
--- NOTE | 2020-07-27 20:23 | NUR ---
Patient stable throughout shift. On RA with no SOB or distress. Patient for discharge tomorrow, product picker at 8AM per Paxton CALABRESE. Endorsed to PM shift nurse, patient aware. Safety precaution in place
[2020-07-28 04:15] VITALS: BP 130/80
[2020-07-28] MEDS: GUAIFENESIN/DEXTROMETHORPHAN 5 ML UDC PO PRN (06:53)
--- NOTE | 2020-07-28 08:44 | NUR ---
Patient with discharge order. Saline lock removed. DC instructions given by Night RN. Patient's medication returned back. Discharged per gurney/ambulance in fair condition, not in distress.
== END 2020-07-28 08:30 | disposition home health service (06) | DRG 291 ==
LOC: ER 08:56 → TELE3 13:42 → MEDSURG3 07-26 11:56
PROVIDERS: ADMIT Nurse Practitioner Acute Care; ATTEND Nurse Practitioner Acute Care
DX: I13.0 Hypertensive heart and chronic kidney disease with heart failure and stage 1 through stage 4 chronic kidney disease, or unspecified chronic kidney disease (principal); I50.33 Acute on chronic diastolic (congestive) heart failure; U07.1 COVID-19; E87.1 Hypo-osmolality and hyponatremia; N18.9 Chronic kidney disease, unspecified; I25.10 Atherosclerotic heart disease of native coronary artery without angina pectoris; G20 Parkinson's disease; E11.22 Type 2 diabetes mellitus with diabetic chronic kidney disease; M19.90 Unspecified osteoarthritis, unspecified site; Z79.84 Long term (current) use of oral hypoglycemic drugs; E87.6 Hypokalemia; Z79.01 Long term (current) use of anticoagulants; Z86.19 Personal history of other infectious and parasitic diseases; Z95.1 Presence of aortocoronary bypass graft; Z95.5 Presence of coronary angioplasty implant and graft; I48.0 Paroxysmal atrial fibrillation; R07.89 Other chest pain
CPT/HCPCS: 36415; 70030-TC; 71045; 82533; 83605; 83615; 83735; 84100; 84443; 84550; 85025; 85730; 86140; 93005; A4663; G0378; J1940; J2001; J3480; J7050; J7060; J8499; U0003

== ENCOUNTER 2025-02-16 02:26 | Emergency (ER) | payer MEDICARE, OTHER ==
[~2025-02-16] VITALS: Ht 175.3 cm; Wt 74.8 kg
[~2025-02-16 02:26] MED LIST changes: +ALLO100T PO; +BACL10TA PO; +CARB-300 PO; +CELE200C PO; +CLOP75TA15 PO; +EZET10TA15 PO; +FOLI0.8C2 PO; +FURO40TA5 PO; +HYDR12.55 PO; -MAGN400C PO; +POTA10CA43 PO; -PRAV10TA40 PO; +SOTA80TA PO; -sotalol PO
[2025-02-16 02:28] VITALS: O2SAT 97
[2025-02-16] MEDS ORDERED: IBUPROFEN 200 MG TABLET ONE (02:42)
[2025-02-16] MEDS ORDERED: ACETAMINOPHEN 500 MG TABLET ONE (02:42)
[2025-02-16] MEDS ORDERED: HYDR-3972 PO (02:43)
[2025-02-16] MEDS: IBUPROFEN 200 MG TABLET PO ONE (02:51)
[2025-02-16] MEDS: ACETAMINOPHEN 500 MG TABLET PO ONE (02:51)
== END 2025-02-16 03:21 | disposition home or self-care (01) ==
LOC: ER 02:29
DX: R07.89 Other chest pain (principal); G20.A1 Parkinson's disease without dyskinesia, without mention of fluctuations; M10.9 Gout, unspecified; N40.0 Benign prostatic hyperplasia without lower urinary tract symptoms; K21.9 Gastro-esophageal reflux disease without esophagitis; Z79.02 Long term (current) use of antithrombotics/antiplatelets; Z79.84 Long term (current) use of oral hypoglycemic drugs; Z79.899 Other long term (current) drug therapy; Z88.7 Allergy status to serum and vaccine; Z95.1 Presence of aortocoronary bypass graft; Z95.5 Presence of coronary angioplasty implant and graft; Z87.39 Personal history of other diseases of the musculoskeletal system and connective tissue; W18.39XA Other fall on same level, initial encounter; Y93.89 Activity, other specified; Y92.89 Other specified places as the place of occurrence of the external cause; Y99.8 Other external cause status
CPT/HCPCS: 71045; A4606; A4663; A9150

== ENCOUNTER 2025-03-09 16:23 | Inpatient (IN) | payer MEDICARE, OTHER ==
[~2025-03-09] VITALS: Ht 175.3 cm; Wt 74.8 kg
[~2025-03-09 16:23] MED LIST changes: +HYDR-3972 PO
[2025-03-09] MEDS ORDERED: TAMS-3 PO (16:35)
[2025-03-09] MEDS ORDERED: CARV12.52 PO (16:37)
[2025-03-09] MEDS ORDERED: DIGO125T PO (16:37)
[2025-03-09] MEDS ORDERED: NITROGLYCERIN OINT 1 GM PACKET TP ONE (16:45)
[2025-03-09] MEDS ORDERED: MAGNESIUM SULFATE/D5W 200 ML ONE (16:46)
[2025-03-09] MEDS ORDERED: METOPROLOL TARTRATE 50 MG TABLET ONE (16:46)
[2025-03-09] MEDS: MAGNESIUM SULFATE 2 GM in IV DEXTROSE 5% 100 ML IV ONE (16:47)
[2025-03-09] MEDS: METOPROLOL TARTRATE 50 MG TABLET PO ONE (16:48)
[2025-03-09] MEDS: NITROGLYCERIN OINT 1 GM PACKET TP ONE (16:48)
[2025-03-09 16:49] LABS: PLATELET COUNT (AUTO) 183 K/uL (152-348); RED BLOOD CELL COUNT(AUTO) 4.46 MIL/uL (4.06-5.63); RED CELL DISTRIBUTION WIDTH 14.5 % (12.1-16.2); WHITE BLOOD COUNT (AUTO) 4.8 K/uL (3.6-10.2)
[2025-03-09 16:56] LABS: CREATININE 1.0 mg/dL (0.6-1.3); SODIUM SERUM 138 mmol/L (136-145); UREA NITROGEN, BLOOD 16 mg/dL (7-18)
[2025-03-09] MEDS ORDERED: HYDROMORPHONE 1 MG/1 ML DISP.SYRIN ONE (17:00)
[2025-03-09] MEDS ORDERED: ONDANSETRON 4 MG/2 ML VIAL ONE (17:00)
[2025-03-09] MEDS: HYDROMORPHONE 1 MG/1 ML DISP.SYRIN IV ONE (17:03)
[2025-03-09] MEDS: ONDANSETRON 4 MG/2 ML VIAL IV ONE (17:03)
[2025-03-09 17:11] LABS: ASPARTATE AMINOTRANSFERASE 21 U/L (15-37); TOTAL PROTEIN, SERUM 7.0 g/dL (6.4-8.2)
[2025-03-09 18:00] VITALS: BP 143/74
[2025-03-09] MEDS ORDERED: MORPHINE SULFATE 2 MG/1 ML DISP.SYRIN IV PRN (18:45)
[2025-03-09] MEDS ORDERED: REMEDY ESSENTIAL ZINC PASTE 113 GM TP PRN (18:45)
[2025-03-09] MEDS ORDERED: EZETIMIBE 10 MG TABLET PO SCH (18:45)
[2025-03-09] MEDS ORDERED: ACETAMINOPHEN 325 MG TABLET PO PRN (18:45)
[2025-03-09] MEDS ORDERED: ONDANSETRON 4 MG/2 ML VIAL IV PRN (18:45)
[2025-03-09] MEDS ORDERED: MAGNESIUM HYDROXIDE 30 ML LIQUID UDC PO PRN (18:45)
[2025-03-09 19:01] VITALS: BP 154/85; TEMP 97.6; O2SAT 98
[2025-03-09 19:12] VITALS: BP 122/64; TEMP 97.5; O2SAT 97
[2025-03-09] MEDS ORDERED: DEXTROSE 50% 50 ML DISP.SYRIN IV PRN (19:30)
[2025-03-09] MEDS ORDERED: INSULIN REGULAR, HUMAN 1000 UNIT/10 ML VIAL SQ PRN (19:30)
[2025-03-09] MEDS ORDERED: INSULIN REGULAR, HUMAN 300 UNITS/3 ML VIAL SQ PRN (19:30)
[2025-03-09] MEDS: ASPIRIN 81 MG TAB.CHEW PO SCH (21:02)
[2025-03-09] MEDS: BACLOFEN 10 MG TABLET PO SCH (21:02)
[2025-03-09] MEDS: APIXABAN 2.5 MG TABLET PO SCH (21:03)
[2025-03-09] MEDS: BLOOD SUGAR DIAGNOSTIC 1 EACH STRIP VI SCH (21:06)
[2025-03-10] VITALS: BP 136/73; TEMP 98; O2SAT 98
[2025-03-10 04:00] VITALS: BP 133/77; TEMP 98.5; O2SAT 96
[2025-03-10] MEDS: HYDROCODONE/APAP 5-325MG TABLET PO PRN (04:23)
[2025-03-10] MEDS: CARBIDOPA/LEVODOPA 25-100MG TABLET PO ONE (06:35)
[2025-03-10 06:54] LABS: PLATELET COUNT (AUTO) 168 K/uL (152-348); RED BLOOD CELL COUNT(AUTO) 4.07 MIL/uL (4.06-5.63); RED CELL DISTRIBUTION WIDTH 14.6 % (12.1-16.2); WHITE BLOOD COUNT (AUTO) 5.3 K/uL (3.6-10.2)
[2025-03-10 07:07] LABS: CREATININE 0.7 mg/dL (0.6-1.3); SODIUM SERUM 138 mmol/L (136-145); UREA NITROGEN, BLOOD 14 mg/dL (7-18)
[2025-03-10 07:31] VITALS: BP 133/76; TEMP 98.9; O2SAT 97
[2025-03-10] MEDS: CLOPIDOGREL 75 MG TABLET PO SCH (08:32)
[2025-03-10] MEDS: DIGOXIN 125 MCG TABLET PO SCH (08:32)
[2025-03-10] MEDS: CARVEDILOL 12.5 MG TABLET PO SCH (08:32)
[2025-03-10] MEDS: ALLOPURINOL 100 MG TABLET PO SCH (08:33)
[2025-03-10] MEDS: LOSARTAN POTASSIUM 50 MG TABLET PO SCH (08:33)
[2025-03-10] MEDS ORDERED: TAMSULOSIN HCL 0.4 MG CAP.SR.24H PO SCH ×2 (09:00→21:00)
[2025-03-10] MEDS ORDERED: CARBIDOPA/LEVODOPA 25-100MG TABLET PO SCH (09:00)
[2025-03-10] MEDS ORDERED: FUROSEMIDE 40 MG TABLET PO SCH ×2 (09:00)
[2025-03-10] MEDS ORDERED: CELECOXIB 200 MG CAPSULE PO SCH ×2 (09:00)
[2025-03-10] MEDS ORDERED: FOLIC ACID 1 MG TABLET PO SCH ×2 (09:00)
[2025-03-10] MEDS ORDERED: SOTALOL HCL 80 MG TABLET PO SCH ×2 (09:00)
[2025-03-10] MEDS ORDERED: BACLOFEN 10 MG TABLET PO SCH (09:00)
[2025-03-10] MEDS ORDERED: POTASSIUM CHLORIDE 10 MEQ TAB.PRT.SR PO SCH ×2 (09:00)
[2025-03-10] MEDS ORDERED: TAMS-3 PO (11:21)
[2025-03-10] MEDS ORDERED: SOTA80TA26 PO (11:21)
[2025-03-10] MEDS ORDERED: POTA10CA43 PO (11:21)
[2025-03-10 11:32] VITALS: BP 127/62; TEMP 98.1; O2SAT 97
[2025-03-10] MEDS: CARBIDOPA/LEVODOPA 25-100MG TABLET PO SCH (12:57)
== END 2025-03-10 15:10 | disposition home health service (06) | DRG 303 ==
LOC: ER 16:23 → TELE3 18:32
PROVIDERS: ADMIT Internal Medicine; ATTEND Internal Medicine
DX: I25.10 Atherosclerotic heart disease of native coronary artery without angina pectoris (principal); I48.20 Chronic atrial fibrillation, unspecified; J90 Pleural effusion, not elsewhere classified; I48.0 Paroxysmal atrial fibrillation; G20.A1 Parkinson's disease without dyskinesia, without mention of fluctuations; E87.6 Hypokalemia; E78.5 Hyperlipidemia, unspecified; N40.0 Benign prostatic hyperplasia without lower urinary tract symptoms; M10.9 Gout, unspecified; I16.0 Hypertensive urgency; I10 Essential (primary) hypertension; Z95.1 Presence of aortocoronary bypass graft; Z95.5 Presence of coronary angioplasty implant and graft; Z79.01 Long term (current) use of anticoagulants; Z79.899 Other long term (current) drug therapy
CPT/HCPCS: 36415; 71045; 83605; 83735; 84100; 84484; 85025; A4606; A4663; G0378; J1171; J1815; J2405; J3475; J8499